=== PATIENT | male | born 1965 | race Caucasian/White ===

== ENCOUNTER 2021-05-06 18:53 | Emergency (ER) | payer BC, OTHER ==
[2021-05-06 19:10] VITALS: BP 123/86; PULSE 65; TEMP 98; BMI 26.7
== END 2021-05-06 20:43 | disposition home or self-care (01) ==
LOC: FER 18:53
DX: S83.412A Sprain of medial collateral ligament of left knee, initial encounter (principal); Y99.8 Other external cause status
CPT/HCPCS: 73560-TC-LT-FY; 99283-25

== ENCOUNTER 2022-08-26 11:52 | Emergency (ER) | payer BC ==
[2022-08-26 12:04] VITALS: BP 140/94; PULSE 80; RESP 16; TEMP 98.8; BMI 27.1
[2022-08-26 12:43] LABS: HEMATOCRIT 44.9 % (35.4-49); INR 1.05 (0.83-1.09); MCH 30.8 pg (25.7-33.7); MCHC 35.6 g/dl (32.0-35.9); MEAN CELL VOLUME 86.6 fl (80-96); MEAN PLT VOLUME 7.8 fl (7.5-11.1); PLATELET COUNT 241.6 10^3/uL (134-434); PROTHROMBIN TIME (PATIENT) 12.1 SEC (9.7-13.0); RBC 5.19 10^6/uL (4.00-5.60); RDW 13.5 % (11.9-15.9); WHITE BLOOD COUNT 6.7 10^3/uL (4.0-10.8)
[2022-08-26 12:45] LABS: ACTIVATED PTT 31.4 SECONDS (25.2-36.5)
[2022-08-26 12:51] LABS: ALBUMIN 4.1 g/dl (3.4-5.0); BILIRUBIN,TOTAL 1.2 mg/dl (0.2-1); CREATININE 1.1 mg/dl (0.55-1.3); PLATELET ESTIMATE ADEQUATE; TOT PROT 7.3 g/dl (6.4-8.2)
== END 2022-08-26 15:38 | disposition home or self-care (01) ==
LOC: FER 11:52
DX: R10.31 Right lower quadrant pain (principal)
CPT/HCPCS: 0241U-QW; 36415; 74177-TC; 80053; 81003; 81015; 83690; 85027; 85610; 85730; 86850; 86900; 86901; 93005; 99285-25; Q9967

== ENCOUNTER 2025-02-13 16:00 | Emergency (ER) | payer OTHER, BC ==
[2025-02-13 16:07] VITALS: BP 132/90; PULSE 60; RESP 18; TEMP 97.7; BMI 27.1
[2025-02-13] MEDS: CEPHALEXIN 250 MG/5 ML ORAL SUSPENSION PO ONE (17:09)
[2025-02-13] MEDS ORDERED: CEPHALEXIN MONOHYDRATE 500 MG CAPSULE (UD) ONE (17:10)
[2025-02-13] MEDS: CEPHALEXIN MONOHYDRATE 500 MG CAPSULE (UD) PO ONE (17:16)
== END 2025-02-13 17:25 | disposition home or self-care (01) ==
LOC: FER 16:00
DX: S62.665A Nondisplaced fracture of distal phalanx of left ring finger, initial encounter for closed fracture (principal); W20.8XXA Other cause of strike by thrown, projected or falling object, initial encounter; Y99.0 Civilian activity done for income or pay
CPT/HCPCS: 73130-TC-LT-FY; 99283-25